=== PATIENT | female | born 1975 | race Caucasian/White ===

== ENCOUNTER 2019-03-17 16:13 | Emergency (ER) | payer MEDICAID ==
[~2019-03-17] VITALS: Ht 172.7 cm; Wt 68.9 kg
[2019-03-17 16:29] VITALS: BP 153/89
[2019-03-17] MEDS ORDERED: IV NORMAL SALINE 1000ML BAG 1,000 ML IV ONE (16:30)
[2019-03-17] MEDS ORDERED: ONDANSETRON PF 4 MG/2 ML VIAL. IV PRN (16:30)
[2019-03-17 17:04] LABS: CANNABINOIDS NEG (NEG); COCAINE NEG (NEG); METHADONE NEG (NEG); OPIATES NEG (NEG); PHENCYCLIDINE NEG (NEG)
[2019-03-17 17:12] LABS: BARBITURATES NEG (NEG); BENZODIAZEPINES NEG (NEG)
[2019-03-17 17:13] LABS: AMPHETAMINE/METHAMPHETAMINE NEG (NEG)
[2019-03-17] MEDS ORDERED: HYDR15CR20 TP (17:17)
[2019-03-17] MEDS ORDERED: IBUP-1007 PO (17:17)
[2019-03-17] MEDS ORDERED: DOCO2CRE TP (17:17)
--- NOTE | 2019-03-17 17:18 | PHYS DOC ---
Past Medical History Past Medical History: No Pertinent History (LINDA ROY APRN) Past Surgical History: No Surgical History (LINDA ROY APRN) Alcohol Use: None Drug Use: None (LINDA ROY APRN) Adult General Chief Complaint Chief Complaint: LOWER EXT PAIN HPI HPI Patient is a 43 year old female who presents to the emergency department by EMS with complaints of sunburns to her bilateral buttock's, lower abdomen, and upper thighs bilaterally after tanning in a tanning bed at [employer]. EMS states that they were called to the [facility] because the patient was on the floor complaining of bilateral foot pain and refusing to get up from the floor. Patient states she has plantar fasciitis and she takes gabapentin for it but it is not helping her plantar fasciitis. Patient also complains of having an outbreak of herpes on the left side of her face. She states she is out of her Valtrex. He currently rates her foot pain a 5 out of 10 on the pain scale, she denies any alleviating factors. She states that ambulation and weightbearing makes the pain worse. (LINDA ROY APRN) Review of Systems Review of Systems Constitutional: Denies fever or chills [] Eyes: Denies change in visual acuity, redness, or eye pain [] HENT: Denies nasal congestion or sore throat [] Respiratory: Denies cough or shortness of breath [] Cardiovascular: No additional information not addressed in HPI [] GI: Denies abdominal pain, nausea, vomiting, or diarrhea [] : Denies dysuria or hematuria [] Musculoskeletal: See history of present illness Integument: See history of present illness Neurologic: Denies headache, focal weakness or sensory changes [] Endocrine: Denies polyuria or polydipsia [] Complete systems were reviewed and found to be within normal limits, except as d ocumented in this note. (LINDA ROY APRN) Current Medications Current Medications Current Medications Medications (Trade) Dose Ordered Sig/Guy Start Time Stop Time Status Last Admin Dose Admin Ondansetron HCl (Zofran) 4 mg PRN 1X PRN 03/17/19 16:30 03/17/19 17:20 DC Sodium Chloride 1,000 ml @ 1,000 mls/hr 1X ONCE 03/17/19 16:30 03/17/19 17:20 DC (SERENITY WALKER MD) Allergies Allergies Allergies Coded Allergies Type Severity Reaction Last Updated Verified No Known Drug Allergies 03/17/19 No (SERENITY WALKER MD) Physical Exam Physical Exam Constitutional: Well developed, well nourished, no acute distress, non-toxic appearance. [] HENT: Normocephalic, atraumatic, bilateral external ears normal, oropharynx moist, no oral exudates, nose normal. [] Eyes: PERRLA, EOMI, conjunctiva normal, no discharge. [] Neck: Normal range of motion, no stridor. [] Cardiovascular:Heart rate regular rhythm, no murmur [] Lungs & Thorax: Bilateral breath sounds clear to auscultation [] Abdomen: soft, no tenderness, no masses, no pulsatile masses. [] Skin: Warm, dry, first-degree sunburn that blanches with palpation noted to bilateral buttocks, bilateral upper thighs, and lower abdomen, no blisters, dry peeling skin noted; Extremities: No cyanosis, no clubbing, ROM intact, no edema; bilateral foot arch tenderness to palpation consistent with plantar fasciitis [] Neurologic: Alert and oriented X 3, no focal deficits noted. [] Psychologic: Hyperverbal, judgement normal, mood normal, denies suicidal or homicidal ideations [] (LINDA ROY APRN) Current Patient Data Vital Signs Vital Signs Date Time Temp Pulse Resp B/P (MAP) Pulse Ox O2 Delivery O2 Flow Rate FiO2 03/17/19 16:29 98.6 123 20 153/89 (110) 97 Room Air 98.6 (SERENITY WALKER MD) Lab Values Laboratory Tests Test 03/17/19 16:29 Urine Opiates Screen Neg (NEG) Urine Methadone Screen Neg (NEG) Urine Barbiturates Neg (NEG) Urine Phencyclidine Screen Neg (NEG) Urine Amphetamine/Methamphetamine Neg (NEG) Urine Benzodiazepines Screen Neg (NEG) Urine Cocaine Screen Neg (NEG) Urine Cannabinoids Screen Neg (NEG) Urine Ethyl Alcohol Neg (NEG) (SERENITY WALKER MD) Lab Values Laboratory Tests Test 03/17/19 16:29 Urine Opiates Screen Neg (NEG) Urine Methadone Screen Neg (NEG) Urine Barbiturates Neg (NEG) Urine Phencyclidine Screen Neg (NEG) Urine Amphetamine/Methamphetamine Neg (NEG) Urine Benzodiazepines Screen Neg (NEG) Urine Cocaine Screen Neg (NEG) Urine Cannabinoids Screen Neg (NEG) Urine Ethyl Alcohol Neg (NEG) (LINDA ROY APRN) EKG EKG [] (LINDA ROY APRN) Radiology/Procedures Radiology/Procedures [] (LINDA ROY APRN) Course & Med Decision Making Course & Med Decision Making Pertinent Labs and Imaging studies reviewed. (See chart for details) dx: Bilateral plantar fasciitis, sun burn due to tanning bed use, recurrent cold sores []Prescription for him for ibuprofen 600 mg by mouth 3 times a day when necessary, hydrocortisone 0.1% topical cream, and Abreva topical medication for cold sores. Patient was instructed to follow up with her primary care doctor, return to the ER if symptoms worsen. Patient verbalized an understanding of home care, medications, follow-up, and return to ED instructions and was in agreement with the plan of care. (LINDA ROY APRN) Course & Med Decision Making I was not involved in the care of this patient after 1800 on 03/17/2019. (SERENITY WALKER MD) Dragon Disclaimer Dragon Disclaimer This electronic medical record was generated, in whole or in part, using a voice recognition dictation system. (LINDA ROY APRN) Departure Departure Impression: Primary Impression: Plantar fasciitis, bilateral Additional Impressions: Sunburn due to tanning bed radiation Recurrent cold sores Disposition: 01 HOME, SELF-CARE Condition: STABLE Patient Instructions: Cold Sore, [id number], Plantar Fasciitis, Sunburn, [id number] Additional Instructions: Fill the prescriptions and use as directed. STOP TANNING. Follow up with your primary care doctor if symptoms persist. return to the ER if symptoms worsen. Scripts Ibuprofen (IBUPROFEN) 600 Mg Tablet 600 MG PO TID for 10 Days, #30 TAB 0 Refills Prov: LINDA ROY APRN 03/17/19 Docosanol (ABREVA) 2 Gm Cream..g. 1 MIRANDA TP 5XDAY PRN for SEE COMMENTS for 7 Days, #1 TUBE 0 Refills prn cold sores Prov: LINDA ROY MOLDING MANAGER 03/17/19 Hydrocortisone Valerate (HYDROCORTISONE VALERATE) 15 Gm Cream..g. 1 MIRANDA TP BID PRN for ITCHING for 10 Days, #30 GM 0 Refills 0.1% cream Prov: LINDA ROY APRN 03/17/19 Problem Qualifiers LINDA ROY APRN Mar 17, 2019 17:18 SERENITY WALKER MD Mar 18, 2019 18:47
== END 2019-03-17 18:52 | disposition home or self-care (01) ==
LOC: ER 16:13
DX: L56.8 Other specified acute skin changes due to ultraviolet radiation (principal); M72.2 Plantar fascial fibromatosis; B00.1 Herpesviral vesicular dermatitis; W89.1XXA Exposure to tanning bed, initial encounter; Y93.89 Activity, other specified; Y92.89 Other specified places as the place of occurrence of the external cause; Y99.8 Other external cause status
CPT/HCPCS: 80307; 99283-25; 99285-25